=== PATIENT | male | born 1970 | race Caucasian/White ===

== ENCOUNTER → 2021-02-15 01:26 | Outpatient (CLI) | payer OTHER, SELFPAY ==
[2021-02-16 16:39] LABS: SARS-CoV-2 RNA PCR Negative
== END ==
PROVIDERS: PCP Family Medicine; Visit Provider Internal Medicine Gastroenterology
DX: Z01.812 Encounter for preprocedural laboratory examination (principal); Z20.822 Contact with and (suspected) exposure to COVID-19
CPT/HCPCS: C9803; U0003; U0005

== ENCOUNTER 2021-02-18 01:01 | Day surgery (SDC) | payer OTHER, SELFPAY ==
[2021-02-18 08:08] VITALS: BP 134/99; PULSE 81; RESP 20; TEMP 36.5; O2SAT 98; BMI 29.8
[2021-02-18] MEDS: LACTATED RINGERS 1,000 ML 150 ML IV CONT (08:11)
--- NOTE | 2021-02-18 08:25 | WPDANESEPPF ---
Anes - Initial Pre Proc Eval Procedure: Operation Date: 02/18/21 09:30 Proposed Procedures p Screening Colonoscopy - Abdifatah Leos MD Date/Time: 02/18/21 08:25 Surgeon: Abdifatah Leos MD Pre Op Diagnosis: neoplasm screening Patient Data Age: 50 Gender: M Height: 1.78 m Weight: 94.4 kg Last Vital Signs Temp 36.5 C 02/18/21 08:08 Pulse 81 02/18/21 08:08 Resp 20 02/18/21 08:08 BP 134/99 H 02/18/21 08:08 Pulse Ox 98 02/18/21 08:08 Allergies Allergy/AdvReac Type Severity Reaction Status Date / Time atorvastatin Allergy Unknown Unknown Verified 02/18/21 08:07 lovastatin Allergy Unknown Unknown Verified 02/18/21 08:07 lisinopril AdvReac Unknown fatigue Verified 02/18/21 08:07 Home Medications Medication Instructions Recorded Confirmed Type aspirin 81 mg tablet,delayed 81 mg PO DAILY 07/18/19 02/18/21 History release losartan 25 mg tablet 25 mg PO DAILY #90 tablet 01/25/21 02/18/21 Rx fenofibrate 160 mg PO DAILY 02/01/21 02/18/21 History Patient hx anesthesia problems: none Family hx anesthesia problems: none PMFSH Past Medical History Medical History (Updated 02/18/21 @ 08:26 by Dylon Ruiz MD) Essential (primary) hypertension Fatty (change of) liver, not elsewhere classified Mixed hyperlipidemia Overweight (BMI 25.0-29.9) Surgical History Surgical History (Updated 07/21/19 @ 13:05 by Loki Troncoso MD) S/P tonsillectomy Family History Family History Father Family history of diabetes mellitus in first degree relative Mother Family history of coronary artery disease Social History Social History (Updated 02/01/21 @ 08:37 by Janine Koenig) Smoking status: Never smoker Second hand tobacco smoke exposure: No Alcohol intake: current Drinks per week: 5 Substance use: never Substance use type: does not use Living arrangements: with family Gender identity (if verbalized by the patient): Male Spiritual care concerns: No Anes - Eval Final PreProcedure Day of Procedure 02/18/21 08:25 Patient weight: overweight Heart: regular rate and rhythm Lungs: clear to auscultation and normal air movement Airway: Mallampati scale class II Neurological: alert and oriented Last oral intake: >/= 8 hours ASA classification: II Emergent: no Anesthetic plan: proceed Anesthesia type and monitoring: general GIVS Informed Consent: The patient's anesthetic plan and its attendant risks and benefits were discussed with the patient/family/POA. Questions were solicited and answers provided to the satisfaction of the patient/family/POA.
--- NOTE | 2021-02-18 08:46 | P.HP_ITS ---
History of Present Illness History of Present Illness Consent: Risks, benefits, and alternatives have been discussed and questions answered. Patient agrees to proceed with procedure. Chief complaint: neoplasm screening Narrative: Erich Alejandra is a 50 year old male referred for colon cancer screening. Review of Systems Review of Systems: All systems reviewed & are unremarkable except as noted in HPI and below PMFSH Past Medical History Medical History Essential (primary) hypertension Fatty (change of) liver, not elsewhere classified Mixed hyperlipidemia Overweight (BMI 25.0-29.9) Surgical History Surgical History S/P tonsillectomy Family History Family History Father Family history of diabetes mellitus in first degree relative Mother Family history of coronary artery disease Social History Social History Smoking status: Never smoker Second hand tobacco smoke exposure: No Alcohol intake: current Drinks per week: 5 Substance use: never Substance use type: does not use Living arrangements: with family Gender identity (if verbalized by the patient): Male Spiritual care concerns: No Meds Home Medications and Allergies Home Medications Medication Instructions Recorded Confirmed Type aspirin 81 mg tablet,delayed 81 mg PO DAILY 07/18/19 02/18/21 History release losartan 25 mg tablet 25 mg PO DAILY #90 tablet 01/25/21 02/18/21 Rx fenofibrate 160 mg PO DAILY 02/01/21 02/18/21 History Allergies Allergy/AdvReac Type Severity Reaction Status Date / Time atorvastatin Allergy Unknown Unknown Verified 02/18/21 08:07 lovastatin Allergy Unknown Unknown Verified 02/18/21 08:07 lisinopril AdvReac Unknown fatigue Verified 02/18/21 08:07 Vital Signs Vital Signs - 24 hr 02/18/21 08:08 Temperature 36.5 C Pulse Rate 81 Respiratory Rate 20 Blood Pressure 134/99 H Pulse Oximetry 98 Exam Resp: Auscultation: clear to auscultation bilaterally Cardio: Rate: regular rate Rhythm: regular rhythm GI: GI Palp: Yes Soft to palpation and No Tenderness to palpation present (GI) Assessment and Plan Assessment and plan (1) Colon cancer screening: Code(s): Z12.11 - Encounter for screening for malignant neoplasm of colon Status: Acute Assessment and Plan: Colonoscopy with possible biopsy or polypectomy or cautery or injection of subst ances.
[2021-02-18 09:46] VITALS: BP 115/83; PULSE 69; RESP 18; O2SAT 97
[2021-02-18 09:56] VITALS: BP 119/83; PULSE 70; RESP 21; O2SAT 96
[2021-02-18 10:06] VITALS: BP 131/92; PULSE 74; RESP 19; O2SAT 96
== END 2021-02-18 10:18 | disposition home or self-care (01) ==
PROVIDERS: PCP Family Medicine; Visit Provider Internal Medicine Gastroenterology
PROC: 0DJD8ZZ Inspection of Lower Intestinal Tract, Via Natural or Artificial Opening Endoscopic (ICD-10-PCS; CPT 45378; principal; 2021-02-18 09:30)
DX: Z12.11 Encounter for screening for malignant neoplasm of colon (principal); K76.0 Fatty (change of) liver, not elsewhere classified; E78.2 Mixed hyperlipidemia; Z79.82 Long term (current) use of aspirin; I10 Essential (primary) hypertension
CPT/HCPCS: 45378; C9803; J2001; J2704; J7120; U0003; U0005

== ENCOUNTER 2025-06-11 16:34 | Outpatient (CLI) | payer BC, SELFPAY ==
--- OUTSIDE RECORDS SUMMARY | 2002-09-02 08:00 | XMS_ITS | Continuity of Care Document ---
Author Organization [facility] Address [address] [place] [address] Phone Care Team Providers Care Gallery Director Name Role Phone Dominic Goins DO Unavailable Unavailable Advance Directives Directive Yes / No Effective Date File Name No Information Encounters Encounter Description Practice Location Reason(s) For Visit Diagnoses Date Provider Providers Copied on Encounter [facility], [address], [place], [place], [id number], [place] tel:[phone] [facility] [address] [place] No Information Briseida Colon. [address] [place], [address], [place]. tel: [phone] Family History Family Member Type Diagnosis Age At Onset No Information Payers Payer name Insurance type Covered constitution party ID Authoriza tion(s) No Information Social History Type Description Quantity Date Captured Comments Sex Male Smoking Status No Information Chief Complaint And Reason For Visit No Information Reason For Referral Reason For Referral No Information History Of Present Illness Encounter Date Complaint History Of Prese nt Illness No Information Functional Status Date Functional Assessmen t No Information Instructions Date Instruction Additional Infor mation No Information Assessments Type Assessment Date No Information Patient Care Teams Name Effective Dates (start - stop) Status Members No Information
[2025-06-11 17:41] LABS: Add Urine Microscopic? YES; Appearance Urine Clear (Clear); Glucose Urine UA Negative (Negative); Leukocyte Esterase Ur 1+ LEU/UL (Negative); Nitrate Urine Negative (Negative); Non Pathogenic Casts 0-2; Specific Grav Ur 1.025 (1.001-1.035)
== END 2025-06-11 16:35 | disposition home or self-care (01) ==
LOC: ANHLAB 16:36
PROVIDERS: PCP Family Medicine; Visit Provider Physician Assistant Medical
DX: R30.0 Dysuria (principal)
CPT/HCPCS: 81001; 87086